=== PATIENT | female | born 2000 | race Caucasian/White ===

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

== ENCOUNTER → 2021-12-22 | Outpatient (CLI) | payer OTHER ==
[~2021-12-22] MED LIST changes: +ZOFRAN4 MG PO
[2021-12-22 19:00] LABS: BASO # 0.1 10*3/uL (0.0-0.1); BASO % 0.4 % (0.0-1.0); EOS # 0.2 10*3/uL (0.0-0.4); EOS % 1.7 % (1.0-4.0); HEMATOCRIT 44.4 % (37.0-47.0); LYMPH # 3.6 10*3/uL (1.3-4.4); LYMPH % 29.4 % (27.0-41.0); MEAN CELL VOLUME 82.5 fl (81.0-99.0); MEAN CORPUSCULAR HGB 27.3 pg (27.0-31.0); MEAN CORPUSCULAR HGB CONC 33.1 g/dl (33.0-37.0); MONO # 0.7 10*3/uL (0.1-1.0); MONO % 5.8 % (3.0-9.0); NEUT # 7.5 10*3/uL (2.3-7.9); NEUT % 62.3 % (47.0-73.0); PLATELET COUNT AUTOMATED 275 10*3/uL (130-400); RED BLOOD COUNT 5.38 10*6/uL (4.10-5.10); WHITE BLOOD COUNT 12.1 10*3/uL (4.8-10.8)
[2021-12-22 19:28] LABS: B-hCG (QUALITATIVE) NEGATIVE (NEGATIVE)
[2021-12-24 04:05] LABS: LUTEINIZING HORMONE 12.9 mIU/mL (.); PROLACTIN 11.1 ng/mL (4.8-23.3)
[2021-12-27 21:04] LABS: TESTOSTERONE FREE, (DIRECT) 4.8 pg/mL (0.0-4.2)
== END | disposition home or self-care (01) ==
LOC: LAB 18:22
PROVIDERS: ATTEND Nurse Practitioner Women's Health
DX: N91.2 Amenorrhea, unspecified (principal); R53.83 Other fatigue

== ENCOUNTER → 2021-12-24 | Outpatient (CLI) | payer OTHER | LOC: LAB 14:04 | PROVIDERS: ATTEND Nurse Practitioner Women's Health | DX: R53.83 Other fatigue (principal); N91.2 Amenorrhea, unspecified ==

== ENCOUNTER → 2022-09-01 | Outpatient (CLI) | payer OTHER | END | disposition home or self-care (01) | LOC: US 13:12 | PROVIDERS: ATTEND Nurse Practitioner Women's Health | DX: N83.201 Unspecified ovarian cyst, right side (principal) ==

== ENCOUNTER → 2022-10-29 | Outpatient (CLI) | payer OTHER | END | disposition home or self-care (01) | LOC: US 10:00 | PROVIDERS: ATTEND Nurse Practitioner Women's Health | DX: N83.201 Unspecified ovarian cyst, right side (principal) ==